=== PATIENT | female | born 1980 | race Caucasian/White ===

== ENCOUNTER 2020-12-18 08:29 | Outpatient (REF) | payer OTHER, SELFPAY ==
[2020-12-20 23:31] LABS: HPV mRNA E6/E7 rflx Not Detected (Not Detected)
== END 2020-12-18 08:30 | disposition home or self-care (01) ==
LOC: HO.LAB 08:29
PROVIDERS: PCP Physician Assistant; Visit Provider Advanced Practice Midwife
DX: Z01.411 Encounter for gynecological examination (general) (routine) with abnormal findings (principal); Z11.51 Encounter for screening for human papillomavirus (HPV); N63.10 Unspecified lump in the right breast, unspecified quadrant; N63.20 Unspecified lump in the left breast, unspecified quadrant
CPT/HCPCS: 36415; 87624; 88142

== ENCOUNTER 2021-01-13 09:55 | Outpatient (REF) | payer OTHER, SELFPAY ==
--- NOTE | ~2021-01-13 | MM_ITS ---
EXAMINATION: MM DIAGNOSTIC DIGITAL BREAST TOMOSYNTHESIS, BILATERAL US DIAGNOSTIC ULTRASOUND BREAST, BILATERAL CLINICAL INFORMATION: 40-year-old with area of palpable concern noted at clinical exam upper outer left breast and outer right breast. No known family history breast cancer. No prior breast imaging. The lifetime risk of breast cancer based on the Tyrer-Cuzick Model is 15%. COMPARISON: None (current study represents initial baseline exam). TECHNIQUE: Digital breast tomosynthesis is performed in both the craniocaudal and mediolateral oblique views along with computer-aided detection (CAD). Synthesized 2D images are generated from the tomosynthesis. Ultrasound left breast is targeted to the upper outer quadrant right breast outer quadrant. Grayscale imaging and color Doppler are performed without and with harmonics. FINDINGS: The breasts are heterogeneously dense, which may obscure small masses (ACR BI-RADS breast composition Category c). There are no significant masses, abnormal calcifications, or other abnormalities. The axilla and skin contours are unremarkable. Ultrasound left breast demonstrates grouping of benign simple cysts 2:00 position 7 cm from nipple composition in area of 1.2 x 0.7 cm. There is no solid mass or associated color flow. There is increased through-transmission of sound. The left breast also has a macrolobulated geographic shape hypoechoic lesion at 12:00 position 5 cm from nipple measuring approximately 1.2 x 0.6 cm. There is no increased or decreased through transmission of sound or associated color flow. The lesion is indeterminate, possibly benign area of fibroadenomatous change or pseudoangiomatous stromal hyperplasia or apocrine metaplasia. Ultrasound-guided core sampling is recommended. Ultrasound right breast demonstrates tiny cyst in o'clock position 7 cm from nipple measuring under 0.5 cm. There is no solid mass or architectural abnormality or focal duct ectasia. Results are discussed with the patient at time of visit. MM/MM tomosynthesis diagnostic BI IMPRESSION: 1. Left: Macrolobulated geographic hypoechoic lesion 12:00 position 1.2 cm. Differential considerations include fibroadenomatous change, pseudoangiomatous stromal hyperplasia, apocrine metaplasia, other. There are also grouped small benign cysts 2:00 position. 2. Right: No mammographic evidence of malignancy. Incidental cyst 8:00 position on ultrasound under 0.5 cm. ASSESSMENT: BI-RADS 4: Suspicious (subcategory 4A: Low suspicion for malignancy) RECOMMENDATION: Ultrasound-guided core biopsy hypoechoic lesion left breast 12:00 position. This patient's information was entered into a reminder system with a target due date for their next mammogram.
== END 2021-01-13 09:56 | disposition home or self-care (01) ==
LOC: HO.MAMMO 09:55
PROVIDERS: Visit Provider Advanced Practice Midwife
DX: N63.21 Unspecified lump in the left breast, upper outer quadrant (principal); N63.13 Unspecified lump in the right breast, lower outer quadrant
CPT/HCPCS: 76642; 77062; 77066

== ENCOUNTER 2021-01-28 09:54 | Outpatient (REF) | payer OTHER, SELFPAY ==
--- NOTE | ~2021-01-28 | MM_ITS ---
EXAMINATION: ULTRASOUND GUIDED CORE BIOPSY BREAST, LEFT POST PROCEDURE DIGITAL MAMMOGRAM, LEFT CLINICAL INFORMATION: Macrolobulated geographic hypoechoic lesion 12:00 position 1.2 cm. Patient age 40. No known family history breast cancer. TC score 15%. COMPARISON: Mammography and targeted breast ultrasound 01/13/2021. FINDINGS: Proper informed consent is obtained from the patient after discussion of the procedure, potential risks and complications, and alternatives. Patient was given an opportunity for questions. The patient appeared to understand. The patient consented to the procedure and signed the consent form. GUIDANCE: Ultrasound-guided; aseptic technique. LESION: Macrolobulated hypoechoic lesion 12:00 position 1.2 x 0.7 cm, possibly fibroadenoma, PASH, apocrine metaplasia, focal fibrosis, other. APPROACH: Mediolateral. ANESTHESIA: 15 mL 1% lidocaine. DERMATOTOMY: Single skin alley dermatotomy performed. NEEDLE: 14-gauge Achieve core biopsy device with 13.5-gauge co-axial guide needle. CORES: 5. CLIP: HydroMARK; shape: coil. POST PROCEDURE UNILATERAL DIGITAL MAMMOGRAM: The post biopsy mammogram is performed in separate room using separate digital mammography equipment from the biopsy procedure. CC x2 and MLO views are obtained. The breasts are heterogeneously dense, which may obscure small masses (breast composition category: c). The clip marker is in position. No gross hematoma. The patient tolerated the procedure well. No immediate complications. Home instructions reviewed with the patient. Final pathology results are pending. MM/MM diagnostic mammo unilat LT IMPRESSION: 1. Status post ultrasound-guided core biopsy left breast. 2. Clip placed: HydroMARK; shape: open coil. 3. Pathology pending. An addendum report will be issued.
== END 2021-01-28 09:55 | disposition home or self-care (01) ==
LOC: HO.MAMMO 09:54
PROVIDERS: Visit Provider Surgery
DX: N63.25 Unspecified lump in the left breast, overlapping quadrants (principal)
CPT/HCPCS: 19083; 77065; 88305; 88341; 88342; A4648

== ENCOUNTER 2021-06-20 09:40 | Outpatient (REF) | payer OTHER, SELFPAY ==
[2021-06-23 04:09] LABS: SARS COV2 IgG Negative (Negative)
== END 2021-06-20 09:41 | disposition home or self-care (01) ==
LOC: HO.LAB 09:40
PROVIDERS: PCP Physician Assistant; Visit Provider Physician Assistant
DX: Z01.84 Encounter for antibody response examination (principal)
CPT/HCPCS: 36415; 86769

== ENCOUNTER → 2021-12-22 09:54 | Outpatient (BNVA) | payer OTHER, SELFPAY | PROVIDERS: PCP Physician Assistant; Visit Provider Advanced Practice Midwife | DX: Z13.89 Encounter for screening for other disorder (principal) ==

== ENCOUNTER → 2022-12-28 10:00 | Outpatient (BNVA) | payer OTHER, SELFPAY | PROVIDERS: PCP Physician Assistant; Visit Provider Advanced Practice Midwife | DX: Z13.89 Encounter for screening for other disorder (principal) ==

== ENCOUNTER → 2024-01-05 10:04 | Outpatient (BNVA) | payer OTHER, SELFPAY | PROVIDERS: Visit Provider Advanced Practice Midwife ==

== ENCOUNTER 2024-08-31 14:45 | Outpatient (AMB) | payer OTHER, SELFPAY ==
[2024-08-31 14:46] VITALS: BP 106/60; PULSE 86; O2SAT 98; BMI 20.1
--- NOTE | 2024-08-31 14:46 | A.OFFPC_ITS ---
Vital Signs 08/31/24 14:46 Height 5 ft 9 in Weight 136 lb 6 oz BMI 20.1 BP 106/60 Blood Pressure Location Lt brachial Position Sitting Pulse 86 Pulse Source Pulse Oximeter Pulse Oximetry (%) 98 Oxygen Delivery Method Room Air Intake Visit Reasons: fatigue,cough, fever,headache Gm/Svp [employer] Required: No Accompanied by: Self / Same As Patient Allergies No Known Allergies [No Known Allergies*] Allergy (Verified 08/31/24 14:55) Tobacco use date assessed: 09/03/21 HPI fatigue,cough, fever,headache HPI Details The patient is a 44-year-old female presenting with a worsening cough and fatigue following a previous diagnosis of pneumonia. She reports that the symptoms began rapidly with a cough and chest pain after recovering from a prior cold, starting the Wednesday before she visited urgent care on October 14. The cough was productive, with phlegm, and was associated with malaise, fatigue, and headache, confining her to bed over the weekend. She visited an urgent care faci lity where she was evaluated with a chest x-ray, diagnosed with pneumonia, and started on doxycycline, another antibiotic, prednisone, and was offered an inhaler. She felt better by Thanksgiving, engaged in activities such as snowboarding, but experienced a recurrence of symptoms two days before this visit, including a severe cough, fatigue, and a low-grade fever. The patient is experiencing cough episodes so intense they induce nausea. She denies current smoking and asthma history, suggesting a generally healthy background. Treatment with prednisone has previously left her feeling invigorated but now seeks a resolution to her respiratory symptoms. She also reports occasional eustachian tube-related ear symptoms, potentially linked to sinus pressure and changes. [facility] Medical History Cervical cancer screening Kidney infection Surgical History History of surgery on arm Family History Paternal Grandmother Congestive heart disease Maternal Grandfather Prostate cancer Social History Alcohol intake: current Alcohol intake frequency: former alcohol drinker Patient Tobacco Use Status: Never used Tobacco Tobacco use type: Cigarette e-Cigarette/Vaping Use: Never Used Second Hand Smoke Exposure: No Current occupational status: employed Current occupation: [employer] Sexual orientation: Straight/Heterosexual Gender identity: Female Female Reproductive History Menstrual Age of Menarche: 14 Questionnaire Thrive Questionnaire Date Thrive assessed: 09/03/21 AUDIT C Alcohol Use Questionnaire (AUDIT-C) 2. How many drinks containing alcohol do you have on a typical day when you are drinking?: 1 or 2 3. How often do you have six or more drinks on one occasion?: Never Total Score: 0 TONO-7 AMB Questionnaire TONO-7 Date TONO - 7 assessed: 09/03/21 Source: Developed by Drs. Jomar Bradford, Mirlande Nevarez, Markus Donovan and colleagues, with an educational pallavi from [employer]. Review of Systems Const Reports body aches, Reports fatigue and Denies headache(s) Eyes Denies loss of vision ENT Denies vertigo, Denies dizziness, Denies headache(s) and Denies sore throat Card Denies chest pain, Denies leg edema and Denies lightheadedness Resp Reports cough, Denies hemoptysis and Denies wheezing GI Denies abdominal pain, Denies melena, Denies constipation, Denies diarrhea and Denies vomiting Denies urinary frequency, Denies dysuria and Denies urinary urgency Musc Denies arthralgias, Denies joint swelling, Denies numbness and Denies tingling Neuro Denies Abnormal speech present, Denies behavioral changes, Denies vertigo, Denies dizziness, Denies headache(s), Denies loss of vision, Denies memory loss, Denies numbness and Denies tingling Psych Denies anxiety, Denies behavioral changes, Denies depression, Denies memory loss and Denies panic attacks Endo Reports fatigue Matthew/Lymph Denies easy bleeding and Denies easy bruising Aller/Immun Denies wheezing Physical exam (Primary Care) Vital Signs: Last Vital Signs Pulse 86 08/31/24 14:46 BP 106/60 08/31/24 14:46 Pulse Ox 98 08/31/24 14:46 Oxygen Delivery Method Room Air 08/31/24 14:46 BMI result Body Mass Index 20.1 Tobacco/Smoking Status: Tobacco use Status Tobacco use date assessed 09/03/21 08/31/24 14:46 Patient Tobacco Use Status Never used Tobacco 12/12/24 14:46 Tobacco use type Cigarette 08/31/24 14:46 e-Cigarette/Vaping Use Never Used 08/31/24 14:46 Thrive Assessment: Date of Thrive Assessment Date Thrive assessed 09/03/21 08/31/24 14:46 Const General: healthy appearing, no acute distress, alert and awake Nutritional Appearance: well nourished Orientation/consciousness: oriented to person, oriented to place and oriented to time HENMT Ears: TM's normal bilaterally General nose exam: Normal nasal mucous membranes and turbinates present Eyes Conjunctivae: conjunctivae normal Sclerae: sclerae normal Pupils: Equal, round and reactive pupils present Neck Neck: Yes no lymphadenopathy and Yes no JVD Thyroid: Thyroid normal Carotids: no bruits Resp Effort & Inspection: normal respiratory effort and not tachypneic Auscultation: no crackles, no rales, no rhonchi and no wheezes Cardio Rate: regular rate Rhythm: regular rhythm Heart sounds: no murmurs and normal S1 and S2 GI Palpation (GI): Soft to palpation, nontender, no hepatomegaly and no splenomegaly Auscultation: normal bowel sounds Skin General skin exam: no rashes or lesions noted and dry skin Neuro General: oriented to person, oriented to place and oriented to time Cranial nerves: Yes Equal, round and reactive pupils present Speech: No Abnormal speech present Gait exam (Neuro): Normal gait present Motor exam (neuro): no tremor noted Extrem Right upper extremity: full ROM Left upper extremity: full ROM Right lower extremity: full ROM; no edema Left lower extremity: full ROM; no edema Psych Mental Status: mental status grossly normal Speech and movement: Normal speech and movement present Affect: normal affect Attitude: cooperative Thought process: Normal thought process present Coding Level of Care Code Est Pt Level 3 (07799) Diagnoses Viral upper respiratory tract infection J06.9 URI type: unspecified viral URI Assessment & Plan Assessment & Plan (1) Upper respiratory infection: Code(s): J06.9 - Acute upper respiratory infection, unspecified Category: Medical Qualifiers: URI type: unspecified viral URI Qualified Code(s): J06.9 - Acute upper respiratory infection, unspecified Plan: I discussed with the patient that her symptoms are suggestive of a recurrence or flare-up of a respiratory infection, possibly pneumonia. A tapering course of prednisone should help reduce lung inflammation and alleviate coughing fits. I provided a prescription for a cough suppressant containing codeine to use at bedtime to facilitate rest, highlighting the considerations given it's a controlled substance. While awaiting testing results for RSV, flu, and COVID, I detailed that a bacterial origin, whether from an unresolved pneumonia or reinfection, may still be suspected depending on symptom recurrence and severit y, and thus antibiotics may be warranted if not improved. I discussed how maintaining proper hygiene and limiting exposure by coughing into a corner or using purification at home can mitigate family risk. Potential repeat imaging was considered contingent on further symptom escalation. Orders: Orders XR chest 2V 08/31/24 J06.9 - Acute upper respiratory infection, unspecified Comprehensive [place]. Panel Fast 08/31/24 Z13.1 - Encounter for screening for diabetes mellitus Complete Blood Count no Diff 08/31/24 Z13.1 - Encounter for screening for diabetes mellitus SARS-CoV2/FLU/RSV 08/31/24 R09.89 - Other specified symptoms and signs involving the circulatory and respiratory systems Medications: New codeine-guaifenesin 10-100 mg/5 mL 5 mL PO Q6H 5 days PRN 120 mL 0RF cough J06.9 - Acute upper respiratory infection, unspecified prednisone Take 3 tablets x3 days, 2 tablets x2 days, 1 tablet x2 days 5 mg PO DIRECTED 7 days 15 tabs 0RF Z13.1 - Encounter for screening for diabetes mellitus amoxicillin-pot clavulanate 875-125 mg 1 tab PO BID 7 days 14 tabs 0RF J06.9 - Acute upper respiratory infection, unspecified
== END 2024-08-31 15:13 | disposition home or self-care (01) ==
PROVIDERS: PCP Physician Assistant; Visit Provider Physician Assistant
DX: J06.9 Acute upper respiratory infection, unspecified (principal)

== ENCOUNTER 2024-08-31 14:45 | Outpatient (REF) | payer OTHER, SELFPAY ==
[2024-08-31 19:39] LABS: Influenza A PCR NEGATIVE (Negative); Influenza B PCR NEGATIVE (Negative); Resp Syncy Virus RNA Qual PCR NEGATIVE (Negative); SARS COV2 PCR INHOUSE NEGATIVE (Negative)
== END 2024-08-31 14:46 | disposition home or self-care (01) ==
LOC: HO.LAB 14:45
PROVIDERS: PCP Physician Assistant; Visit Provider Physician Assistant
DX: J06.9 Acute upper respiratory infection, unspecified (principal); R09.89 Other specified symptoms and signs involving the circulatory and respiratory systems
CPT/HCPCS: 0241U

== ENCOUNTER 2024-10-10 07:27 | Outpatient (REF) | payer OTHER, SELFPAY ==
[2024-10-10 07:59] LABS: Hematocrit 36.7 % (37.0-47.0); Hemoglobin 12.4 g/dl (12.0-16.0); Mean Corpuscular HGB Conc 33.8 g/dl (31.0-35.0); Mean Corpuscular Hemoglobin 29.5 pg (27.0-33.0); Mean Corpuscular Volume 87.4 fL (80.0-98.0); Mean Platelet Volume 10.3 fL (9.4-12.3); Platelet Count 208 X10*3/uL (160-400); Red Cell Distribution Width 12.8 % (11.0-16.0); White Blood Count 4.3 X10*3/uL (4.8-10.8)
[2024-10-10 08:48] LABS: Alanine Aminotransferase 22 U/L (0-31); Albumin Level 4.3 g/dL (3.5-5.0); Alkaline Phosphatase 50 U/L (39-117); Anion Gap 10 (12-20); Aspartate Amino Transferase 21 U/L (5-31); Bilirubin Total 0.6 mg/dL (0.0-1.0); Blood Urea Nitrogen 8 mg/dL (9-16); Calcium 8.6 mg/dL (8.4-10.2); Carbon Dioxide 28 mmol/L (22-29); Chloride 105 mmol/L (96-108); Estimated Glomerular Filt Rate > 60; Glucose Fasting 87 mg/dL (60-99); Potassium 4.1 mmol/L (3.3-5.1); Sodium 139 mmol/L (135-145); Total Protein 7.3 g/dL (6.5-8.0)
== END 2024-10-10 07:28 | disposition home or self-care (01) ==
LOC: HO.LAB 07:27
PROVIDERS: PCP Physician Assistant; Visit Provider Physician Assistant
DX: Z13.1 Encounter for screening for diabetes mellitus (principal)
CPT/HCPCS: 36415; 80053; 85027

== ENCOUNTER 2024-10-11 15:15 | Outpatient (AMB) | payer OTHER, SELFPAY ==
--- NOTE | 2024-10-11 15:17 | MHC.PC.OV ---
Vital Signs 10/11/24 15:30 Height 5 ft 9 in Weight 138 lb 2 oz BMI 20.4 BP 100/62 Blood Pressure Location Lt brachial Position Sitting Pulse 73 Pulse Source Pulse Oximeter Temp 97.1 F Temp Source Temporal Artery Scan Pulse Oximetry (%) 98 Oxygen Delivery Method Room Air Intake Visit Reasons: pe Allergies No Known Allergies [No Known Allergies*] Allergy (Verified 10/11/24 15:39) Medication List - Last Reconciled 10/11/24 by Jason Moreno PA-C amoxicillin-pot clavulanate 875-125 mg 1 tab PO BID 7 days codeine-guaifenesin 10-100 mg/5 mL 5 mL PO Q6H PRN 5 days prednisone 5 mg PO DIRECTED 7 days Tobacco use date assessed: 09/03/21 HPI pe HPI Details Patient is a 44-year-old female here today for an annual physical. Patient is a fairly healthy 44-year-old female. Recently had an upper respiratory infection that lasted a few weeks. She was treated with antibiotics, cough suppressant tablets and prednisone which has helped. She has clinically improved. Most recent labs showing slight leukopenia with a white blood cell count of 4.3. Will continue to monitor and consider Hematology evaluation. 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 Vaccine: Up-to-date with tetanus, declines flu , Did get COVID .. Mammo: Did have? Abnormal mammogram in 2020, did get a diagnostic mammogram which was normal. 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 [facility] Medical History Cervical cancer screening Kidney infection Surgical History History of surgery on arm Family History Paternal Grandmother Congestive heart disease Maternal Grandfather Prostate cancer Social History (Updated 10/11/24 @ 15:42 by Jason Moreno PA-C) Alcohol intake: current Alcohol intake frequency: former alcohol drinker Patient Tobacco Use Status: Never used Tobacco Tobacco use type: Cigarette e-Cigarette/Vaping Use: Never Used Second Hand Smoke Exposure: No Current occupational status: employed Current occupation: [id number] Sexual orientation: Straight/Heterosexual Gender identity: Female Female Reproductive History Menstrual Age of Menarche: 14 Questionnaire PHQ-9 Over the last 2 weeks, how often have you been bothered by any of the following problems? 1. Little interest or pleasure in doing things: not at all 2. Feeling down, depressed, or hopeless: not at all 3. Trouble falling or staying asleep, or sleeping too much: not at all 4. Feeling tired or having little energy: not at all 5. Poor appetite or overeating: not at all 6. Feeling bad about yourself - or that you are a failure or have let yourself or your family down: not at all 7. Trouble concentrating on things, such as reading the newspaper or watching television: not at all 8. Moving or speaking so slowly that other people could have noticed. Or the opposite - being so fidgety or restless that you have been moving around a lot more than usual: not at all 9. Thoughts that you would be better off or of hurting yourself in some way: not at all Total score: 0 Depression Screening Interpretation: Negative Depression Screening Done: Yes [address]7539 - PHQ-9 Billing: Yes Source: Developed by Drs. Jomar Bradford, Mirlande Nevarez, Markus Donovan and colleagues, with an educational pallavi from [employer]. Thrive Questionnaire Date Thrive assessed: 10/11/24 I am a: Patient What is your living situation today?: I have a steady place to live Within the past 12 months, did the food you bought not last and you didn't have the money to get more?: Never true Within the past 12 months, did you worry whether your food would run out before you got money to buy more?: Never true Do you have trouble paying for medicines?: No Do you have trouble getting transportation to medical appointments?: No Do you have trouble paying your heating and electricity bill?: No Do you have trouble taking care of your child, family member or friend?: No Do you have trouble with day-to-day activities such as bathing, preparing meals, shopping, managing finances, etc.?: No Are you currently unemployed and looking for a job?: No Are you interested in more education?: No Please select the resources that you would like help with: None Currently or been in a relationship where the following occur: No concerns reported THRIVE Score: 0 AUDIT C Alcohol Use Questionnaire (AUDIT-C) 1. How often do you have a drink containing alcohol?: Never 3. How often do you have six or more drinks on one occasion?: Never Total Score: 0 TONO-7 AMB Questionnaire TONO-7 Date TONO - 7 assessed: 10/11/24 Feeling nervous, anxious, or on edge: 0 = Not at all Not being able to stop or control worryin = Not at all Worrying too much about different things: 0 = Not at all Trouble relaxin = Not at all Being so restless that it is hard to sit still: 0 = Not at all Becoming easily annoyed or irritable: 0 = Not at all Feeling afraid as if something awful might happen: 0 = Not at all Total TONO-7 score (0-4 normal; 5-9 mild; 10-14 moderate; 15-21 severe): 0 Source: Developed by Drs. Jomar Bradford, Mirlande Nevarez, Markus Donovan and colleagues, with an educational pallavi from [employer]. TONO-7 Assessment Billing TONO-7 Assessment Tool: TONO-7 Assessment 11728 Review of Systems Const Denies body aches, Denies chills, Denies excessive sweating, Denies fatigue, Denies fever(s) and Denies headache(s) Eyes Denies blurry vision ENT Denies dysphagia, Denies vertigo, Denies dizziness, Denies headache(s), Denies hearing loss and Denies tinnitus Card Denies chest pain, Denies chest pain with activity, Denies syncope, Denies irregular heart rhythm and Denies dyspnea Resp Denies chest congestion, Denies cough, Denies hemoptysis, Denies dyspnea and Denies wheezing GI Denies abdominal pain, Denies melena, Denies hematochezia, Denies coffee ground emesis, Denies dysphagia, Denies diarrhea, Denies nausea and Denies vomiting Denies urinary frequency, Denies dysuria, Denies urinary hesitancy and Denies urinary urgency Musc Denies arthralgias, Denies limited range of motion, Denies muscle cramps and Denies muscle weakness Skin/Breast Denies rash and Denies skin ulcer Neuro Denies Abnormal speech present, Denies confusion, Denies vertigo, Denies dizziness, Denies syncope, Denies headache(s), Denies memory loss and Denies seizure-like activity Psych Denies anxiety, Denies confusion, Denies depression, Denies memory loss, Denies panic attacks and Denies paranoia Endo Denies excessive sweating, Denies fatigue, Denies flushing, Denies polydipsia and Denies polyuria Aller/Immun Denies wheezing Physical exam (Primary Care) Vital Signs: Last Vital Signs Temp 97.1 F 10/11/24 15:30 Pulse 73 10/11/24 15:30 BP 100/62 10/11/24 15:30 Pulse Ox 98 10/11/24 15:30 Oxygen Delivery Method Room Air 10/11/24 15:30 BMI result Body Mass Index 20.4 Tobacco/Smoking Status: Tobacco use Status Tobacco use date assessed 09/03/21 10/11/24 15:17 Patient Tobacco Use Status Never used Tobacco 10/11/24 15:42 Tobacco use type Cigarette 10/11/24 15:42 e-Cigarette/Vaping Use Never Used 10/11/24 15:42 PHQ-9: PHQ-9 Score PHQ-9: Total score 0 10/11/24 15:38 Depression Screening Interpretation: Negative Thrive Assessment: Date of Thrive Assessment Date Thrive assessed 10/11/24 10/11/24 15:17 Currently or been in a relationship where the following occur: No concerns reported Const General: cooperative, comfortable, no acute distress, alert and awake; No confusion Orientation/consciousness: oriented to person, oriented to place, patient oriented x3 and No confusion HENMT Head: Yes normocephalic Ears: external ears normal and TM's normal bilaterally Face and sinus: No sinus tenderness Mouth: Normal oral and palatal mucosa present and tongue normal Teeth and gingiva: dentition normal and gingiva normal Throat: Yes posterior oropharynx normal, Yes tonsils normal and Yes uvula midline Eyes Conjunctivae: conjunctivae normal Sclerae: sclerae normal Pupils: Equal, round and reactive pupils present EOM: EOMs intact bilaterally Direct Ophthalmoscopy: No no photophobia Neck Neck: Yes no lymphadenopathy, No tender and Yes no JVD Thyroid: Thyroid normal Carotids: no bruits Chest Chest palpation & inspection: no tenderness Resp Effort & Inspection: normal respiratory effort, no audible wheezes, not labored and no stridor Auscultation: no crackles, no rales, no rhonchi and no wheezes Cardio Jugular venous distension: no JVD Rate: regular rate, not bradycardic and not tachycardic Rhythm: regular rhythm Bruits: no carotid bruits Peripheral pulses: Peripheral pulses 2+ throughout GI Inspection: Yes normal to inspection, No abdominal wall ecchymosis and No visible herniation Palpation (GI): Soft to palpation, nontender, no guarding, not rigid and No hepatosplenomegaly present Auscultation: normoactive bowel sounds General: Yes no CVA tenderness Back/Spine/Pelvis Back: no CVA tenderness and No back tenderness Cervical Spine: cervical ROM normal Thoracic/Lumbar Spine: thoracic and lumbar spine normal to inspection, straight leg raise negative bilaterally, No thoraco-lumbar ROM limited and No lumbar spinal tenderness Skin Lesions: no lesions Rashes: no rashes Wounds: no wounds Neuro General: oriented to person, oriented to place, patient oriented x3, CN's II-XI intact bilaterally and No confusion Cranial nerves: Yes Equal, round and reactive pupils present and Yes Normal accommodation reflex present Cognition (Neuro): normal cognition Speech: No Abnormal speech present Gait exam (Neuro): Normal gait present Motor exam (neuro): 5/5 motor strength present throughout Extrem Right upper extremity: full ROM; no cyanosis Left upper extremity: full ROM; no cyanosis Right lower extremity: no edema Left lower extremity: no edema Psych Appearance: grossly normal Mental Status: mental status grossly normal Affect: normal affect Attitude: cooperative Thought process: Normal thought process present Office Procedures Flu Questionnaire Does the patient have a severe egg allergy?: No Does the patient have severe life threatening allergies?: No Does the patient have a fever or illness today?: No Has the patient ever had Guillain-Kremlin Syndrome?: No Has the patient ever had any past reaction to a flu shot?: No Immunizations Fluarix Triv [id number] (PF) 45 mcg (15 mcg x 3)/0.5 mL IM syringe Performing Provider: Jason Moreno PA-C [facility] [place] [facility] Documented (not given) by: JARON Edwards on 10/11/24 15:33 Reason Not Given: Patient Refused Coding Level of Care Code Est Pt Prev Care 40-64y(72192) Diagnoses Annual physical exam Z00.00 Neutropenia, unspecified type D70.9 Leukopenia type: neutropenia Neutropenia type: unspecified Additional Codes TONO-7 Assessment Billing - TONO-7 Assessment Tool: TONO-7 Assessment 37237 ([id number]) PHQ-9 - 98331 - PHQ-9 Billing: Yes ([id number]) Assessment & Plan Assessment & Plan (1) Annual physical exam: Code(s): Z00.00 - Encounter for general adult medical examination without abnormal findings Category: Medical Plan: As per HPI (2) Leukopenia: Code(s): D72.819 - Decreased white blood cell count, unspecified Category: Medical Qualifiers: Leukopenia type: neutropenia Neutropenia type: unspecified Qualified Code(s): D70.9 - Neutropenia, unspecified Plan: As per HPI noted to have leukopenia over the last few years. Will recheck CBC in 4 weeks after she recently had an upper respiratory infection. Will consider Hematology evaluation. Orders: Orders Influenza [id number] Immunization 10/11/24 Z23 - Encounter for immunization Complete Blood Count Auto Diff 4 Weeks D70.9 - Neutropenia, unspecified
[2024-10-11 15:30] VITALS: BP 100/62; PULSE 73; TEMP 36.2; O2SAT 98; BMI 20.4
== END 2024-10-11 16:02 | disposition home or self-care (01) ==
PROVIDERS: PCP Physician Assistant; Visit Provider Physician Assistant
DX: Z00.00 Encounter for general adult medical examination without abnormal findings (principal); D70.9 Neutropenia, unspecified

== ENCOUNTER → 2024-10-11 15:15 | Outpatient (BNVA) | payer OTHER, SELFPAY | PROVIDERS: PCP Physician Assistant; Visit Provider Physician Assistant | DX: Z00.00 Encounter for general adult medical examination without abnormal findings (principal); D70.9 Neutropenia, unspecified; Z28.21 Immunization not carried out because of patient refusal | CPT/HCPCS: 90471; 96127 ==

== ENCOUNTER 2025-02-01 08:23 | Outpatient (REF) | payer OTHER, SELFPAY ==
[2025-02-01 08:48] LABS: MANUAL DIFF FLAG NO
[2025-02-01 09:25] LABS: Basophils Percent Auto 1.2 % (0-2); Eosinophils Absolute Auto 0.1 X10*3/uL (0.0-0.4); Eosinophils Percent Auto 1.5 % (0-4); Hematocrit 34.8 % (37.0-47.0); Hemoglobin 11.8 g/dl (12.0-16.0); Lymphocytes Absolute Auto 1.5 X10*3/uL (1.2-4.9); Mean Corpuscular HGB Conc 33.9 g/dl (31.0-35.0); Mean Corpuscular Hemoglobin 29.8 pg (27.0-33.0); Mean Corpuscular Volume 87.9 fL (80.0-98.0); Mean Platelet Volume 10.5 fL (9.4-12.3); Monocytes Absolute Auto 0.3 X10*3/uL (0.1-1.2); Monocytes Percent Auto 10.5 % (2-11); Neutrophils Absolute Auto 1.3 x10*3/uL (2.0-8.3); Neutrophils Percent Auto 40.8 % (45-73); Platelet Count 192 X10*3/uL (160-400); Red Blood Count 3.96 X10*6/uL (4.20-5.50); Red Cell Distribution Width 12.2 % (11.0-16.0); White Blood Count 3.2 X10*3/uL (4.8-10.8)
== END 2025-02-01 08:24 | disposition home or self-care (01) ==
LOC: HO.LAB 08:23
PROVIDERS: PCP Physician Assistant; Visit Provider Physician Assistant
DX: D70.9 Neutropenia, unspecified (principal)
CPT/HCPCS: 36415; 85025

== ENCOUNTER 2025-02-02 14:32 | Outpatient (REF) | payer OTHER, SELFPAY ==
[2025-02-02 15:48] LABS: Iron 48 mcg/dL (30-160); Percent Iron Saturation 15 % (15-50); Total Iron Binding Capacity 321 mcg/dL (228-428); Unsaturated Iron Binding 273 ug/dL
[2025-02-02 15:57] LABS: Vitamin D 25-OH Total 27.4 ng/mL (>30)
[2025-02-02 16:12] LABS: Folate 8.3 ng/mL (> or = 4.0); Vitamin B12 313 pg/mL (200-900)
== END 2025-02-02 14:33 | disposition home or self-care (01) ==
LOC: HO.LAB 14:32
PROVIDERS: PCP Physician Assistant; Visit Provider Physician Assistant
DX: E53.8 Deficiency of other specified B group vitamins (principal); D64.9 Anemia, unspecified; D50.9 Iron deficiency anemia, unspecified
CPT/HCPCS: 36415; 82306; 82607; 82746; 83540

== ENCOUNTER 2025-07-27 11:51 | Outpatient (REF) | payer OTHER, SELFPAY ==
[2025-07-27 12:02] LABS: MANUAL DIFF FLAG NO
[2025-07-27 13:51] LABS: Hematocrit 36.5 % (37.0-47.0); Hemoglobin 12.6 g/dl (12.0-16.0); Imm Gran Abs Auto 0.01 X10*3/uL (0.00-0.03); Imm Gran Pct Auto 0.2 % (0.0-0.4); Lymphocytes Absolute Auto 1.8 X10*3/uL (1.2-4.9); Mean Corpuscular HGB Conc 34.5 g/dl (31.0-35.0); Mean Corpuscular Hemoglobin 30.1 pg (27.0-33.0); Mean Corpuscular Volume 87.3 fL (80.0-98.0); NRBC Abs Auto 0.000 X10*3/uL (0.0-0.012); NRBC Pct Auto 0.0 /100WBC (0.0-0.2); Platelet Count 220 X10*3/uL (160-400); Red Blood Count 4.18 X10*6/uL (4.20-5.50); White Blood Count 5.9 X10*3/uL (4.8-10.8)
--- OUTSIDE RECORDS SUMMARY | 2025-07-27 14:16 | XMS_ITS | Clinical Summary ---
Author Organization [facility] Address [address] [address] Phone Care Team Providers Care Production Reproduction Manager Name Role Phone Kateryna Parker CNM Primary Care Provider [phone] Allergies No known active allergies Family History Medical History Relation Comments Hypertension Father 2 Cancer Maternal Grandfather 2 Relation Status Comments Father 1 Alive Father 2 Maternal Grandfather 1 Maternal Grandfather 2 Social History Tobacco Use Types Packs/Day Years Used Date Smoking Tobacco: Never Assessed Education Answer Date Recorded Are you interested in more education? Not on armando e 09/04/2024 Are you concerned about learning? Not on file 09/04/2024 No 09/04/2024 No 09/04/2024 Digital Access Answer Date Recorded No 09/04/2024 No 09/04/2024 Reliable internet access at home? Not on file 09/04/2024 Device with a working camera? Not on file Comments Unknown Sex and Gender Information Value Date Recorded Sex Assigned at Not on file Legal Sex Female 7:01 PM EST Gender Identity Not on file Sexual Orientation Not on file Last Filed Vital Signs Vital Sign Reading Time Taken Comments Blood Pressure 100/62 09/04/2014 3:16 AM EST Pulse - - Temperature - - Respiratory Rate - - Oxygen Saturation - - Inhaled Oxygen Concentration - - Weight 63.8 kg (140 lb 9.6 oz) 09/04/2014 3:16 A M EST Height 172.7 cm (5' 8 ) 09/04/2014 3:16 AM EST Body Mass Index 21.38 09/04/2014 3:16 AM EST Plan of Treatment Health Maintenance Due Date Last Done Comments Adult Td,Tdap Booster 1981 DEPRESSION SCREENING 1993 SMOKING Hx and SMOKELESS TOB ACCO SCREENING 1994 HEPATITIS C SCREENING 1999 HIV ONE-TIME SCREENING (18-6 5 YEARS) 1999 PAP SMEAR 2002 MAMMOGRAM 2021 INFLUENZA VACCINE (#1) 2025 COVID-19 VACCINE ( - 2024-2 6 season) 2025 HEPATITIS A VACCINES Aged Out No long er eligible based on patient's age to complete this topic HIB VACCINES Aged Out No longer eligi ble based on patient's age to complete this topic MENINGOCOCCAL VACCINES (ACWY) Aged Out No longer eligible based on patient's age to complete this topic MENINGOCOCCAL VACCINES (B) Aged Out N o longer eligible based on patient's age to complete this topic PNEUMOCOCCAL VACCINES (0-49 years) Aged Out No longer eligible based on patient's age to complete this topic Medical Devices Not on file Insurance [employer] B[employer]EFITS [employer]MIN[employer]RATORS Member Subscriber Plan / Payer (Ef fective 2016-Present) Name:Asa Mckeon Relation to Subscriber:Self Name:Asa Mckeon Payer ID:[id number] (NAIC) Type:PPO Address: [place] [id number] [employer] [facility] ADMINISTRATORS [employer] BENEFITS ADMINISTRATORS [facility] BLUE BENEFITS ADMINISTRATORS Care Teams Production Reproduction Manager Relationship Specialty Start Date End Date Kateryna Parker CNM [address] [place] [id number] PCP - General Certified Nurse Hydropulper 02/02/25 Additional Source Comments The information contained in this document represents components of the legal health record. It is not the complete legal health record.[facility]
== END 2025-07-27 11:52 | disposition home or self-care (01) ==
LOC: HO.LAB 11:51
PROVIDERS: PCP Physician Assistant; Visit Provider Physician Assistant
DX: D70.9 Neutropenia, unspecified (principal)
CPT/HCPCS: 36415; 85025

== ENCOUNTER 2025-07-30 10:58 | Outpatient (AMB) | payer OTHER, SELFPAY ==
--- NOTE | 2025-07-30 11:12 | MHC.PC.OV ---
Vital Signs 07/30/25 11:13 Height 5 ft 9 in Weight 136 lb 8 oz BMI 20.2 BP 100/66 Blood Pressure Location Lt brachial Position Sitting Pulse 66 Pulse Source Pulse Oximeter Temp 97.1 F Temp Source Temporal Artery Scan Pulse Oximetry (%) 96 Oxygen Delivery Method Room Air Intake Visit Reasons: Referral Hematology/blood disorder Intake Note: Patient is here to follow up on blood disorder. Requesting referral to Hematology. Senior Web Applications Developer Required: No Sales Representative Sales Manager: Not Required per policy Accompanied by: Self / Same As Patient Allergies No Known Allergies (No Known Allergies*) Allergy (Verified 07/30/25 11:46) Medication List - Last Reconciled 07/30/25 by Jason Moreno PA-C No Known Home Meds Tobacco use date assessed: 07/30/25 Dental Screening Dental Screen Date: 07/30/25 Did you have a dental visit in the last 12 months?: Yes Did you have a dental problem in the last 6 months where you did not have access to dental care?: No Was dental information given to patient?: Patient has dentist HPI Referral Hematology/blood disorder HPI Details Patient is a 45-year-old female here today for follow-up visit Patient has a past medical history significant for leukopenia and anemia Most recent labs showing slight leukopenia with a white blood cell count of 4.3. Recent vitamin levels of B12, iron and folate normal. She is not as concerned as it seems that she has chronic intermittent low red blood cell counts Will continue to monitor and consider Hematology evaluation. Laboratory Tests 05/18/20 10/10/24 02/01/25 08:12 07:33 08:47 RBC 4.05 L 4.20 3.96 L Hgb 12.6 12.4 Hct 34.8 L MCV Iron TIBC Cholesterol 181 Vitamin B12 25-OH Vitamin D To evi TSH 3rd Generation 1.25 02/02/25 07/27/25 14:44 12:01 RBC 4.18 L Hgb Hct 36.5 L MCV 87.3 Iron 48 TIBC 321 Cholesterol Vitamin B12 313 25-OH Vitamin D To evi 27.4 L TSH 3rd Generation PFSH Medical History Cervical cancer screening Kidney infection Surgical History History of surgery on arm Family History Paternal Grandmother Congestive heart disease Maternal Grandfather Prostate cancer Social History Alcohol intake: current Alcohol intake frequency: former alcohol drinker Patient Tobacco Use Status: Never used Tobacco Tobacco use type: Cigarette e-Cigarette/Vaping Use: Never Used Second Hand Smoke Exposure: No service: No Current occupational status: employed Current occupation: [employer] Sexual orientation: Straight/Heterosexual Gender identity: Female Cognitive needs: No Hearing needs: No Vision needs: No Female Reproductive History Menstrual Age of Menarche: 14 Questionnaire Thrive Questionnaire Date Thrive assessed: 10/11/24 I am a: Patient What is your living situation today?: I have a steady place to live Within the past 12 months, did the food you bought not last and you didn't have the money to get more?: Never true Within the past 12 months, did you worry whether your food would run out before you got money to buy more?: Never true Do you have trouble paying for medicines?: No Do you have trouble getting transportation to medical appointments?: No Do you have trouble paying your heating and electricity bill?: No Do you have trouble taking care of your child, family member or friend?: No Do you have trouble with day-to-day activities such as bathing, preparing meals, shopping, managing finances, etc.?: No Are you currently unemployed and looking for a job?: No Are you interested in more education?: No Please select the resources that you would like help with: None Currently or been in a relationship where the following occur: No concerns reported THRIVE Score: 0 TONO-7 AMB Questionnaire TONO-7 Date TONO - 7 assessed: 10/11/24 Source: Developed by Drs. Jomar Bradford, Mirlande Nevarez, Markus Donovan and colleagues, with an educational pallavi from [employer]. Review of Systems Const Denies headache(s) Eyes Denies loss of vision ENT Denies vertigo, Denies dizziness, Denies headache(s) and Denies sore throat Card Denies chest pain, Denies leg edema and Denies lightheadedness Resp Denies cough, Denies hemoptysis and Denies wheezing GI Denies abdominal pain, Denies melena, Denies constipation, Denies diarrhea and Denies vomiting Denies urinary frequency, Denies dysuria and Denies urinary urgency Musc Denies arthralgias, Denies joint swelling, Denies numbness and Denies tingling Neuro Denies Abnormal speech present, Denies behavioral changes, Denies vertigo, Denies dizziness, Denies headache(s), Denies loss of vision, Denies memory loss, Denies numbness and Denies tingling Psych Denies anxiety, Denies behavioral changes, Denies depression, Denies memory loss and Denies panic attacks Matthew/Lymph Denies easy bleeding and Denies easy bruising Aller/Immun Denies wheezing Physical exam (Primary Care) Vital Signs: Last Vital Signs Temp 97.1 F 07/30/25 11:13 Pulse 66 07/30/25 11:13 BP 100/66 07/30/25 11:13 Pulse Ox 96 07/30/25 11:13 Oxygen Delivery Method Room Air 07/30/25 11:13 BMI result Body Mass Index 20.2 Tobacco/Smoking Status: Tobacco use Status Tobacco use date assessed 07/30/25 07/30/25 11:27 Patient Tobacco Use Status Never used Tobacco 07/30/25 11:27 Tobacco use type Cigarette 07/30/25 11:27 e-Cigarette/Vaping Use Never Used 07/30/25 11:27 Thrive Assessment: Date of Thrive Assessment Date Thrive assessed 10/11/24 07/30/25 11:27 Currently or been in a relationship where the following occur: No concerns reported Const General: healthy appearing, no acute distress, alert and awake Nutritional Appearance: well nourished Orientation/consciousness: oriented to person, oriented to place and oriented to time HENIN Ears: TM's normal bilaterally General nose exam: Normal nasal mucous membranes and turbinates present Eyes Conjunctivae: conjunctivae normal Sclerae: sclerae normal Pupils: Equal, round and reactive pupils present Neck Neck: Yes no lymphadenopathy and Yes no JVD Thyroid: Thyroid normal Carotids: no bruits Resp Effort & Inspection: normal respiratory effort and not tachypneic Auscultation: no crackles, no rales, no rhonchi and no wheezes Cardio Rate: regular rate Rhythm: regular rhythm Heart sounds: no murmurs and normal S1 and S2 GI Palpation (GI): Soft to palpation, nontender, no hepatomegaly and no splenomegaly Auscultation: normal bowel sounds Skin General skin exam: no rashes or lesions noted and dry skin Neuro General: oriented to person, oriented to place and oriented to time Cranial nerves: Yes Equal, round and reactive pupils present Speech: No Abnormal speech present Gait exam (Neuro): Normal gait present Motor exam (neuro): no tremor noted Extrem Right upper extremity: full ROM Left upper extremity: full ROM Right lower extremity: full ROM; no edema Left lower extremity: full ROM; no edema Psych Mental Status: mental status grossly normal Speech and movement: Normal speech and movement present Affect: normal affect Attitude: cooperative Thought process: Normal thought process present Coding Level of Care Code Est Pt Level 3 (07222) Diagnoses Neutropenia, unspecified type D70.9 Leukopenia type: neutropenia Neutropenia type: unspecified Assessment & Plan Assessment & Plan (1) Leukopenia: Code(s): D72.819 - Decreased white blood cell count, unspecified Category: Medical Qualifiers: Leukopenia type: neutropenia Neutropenia type: unspecified Qualified Code(s): D70.9 - Neutropenia, unspecified Plan: As per HPI noted to have leukopenia over the last few years. We have rechecked her white blood cell levels which seem to have somewhat normalized. Patient has not had any recurrent illnesses. Will continue to follow CBC and consider Hematology evaluation Orders: Orders IRON PROFILE 07/30/25 D50.9 - Iron deficiency anemia, unspecified, D64.9 - Anemia, unspecified Ferritin 07/30/25 D64.9 - Anemia, unspecified Complete Blood Count Auto Diff 07/30/25 D64.9 - Anemia, unspecified Vitamin B12 and Folate 07/30/25 D64.9 - Anemia, unspecified, E53.8 - Deficiency of other specified B group vitamins Vitamin D 25-OH Total 07/30/25 D64.9 - Anemia, unspecified
[2025-07-30 11:13] VITALS: BP 100/66; PULSE 66; TEMP 36.2; O2SAT 96; BMI 20.2
--- OUTSIDE RECORDS SUMMARY | 2025-07-30 13:10 | XMS_ITS | Clinical Summary ---
Author Organization [facility] Address [address] [address] Phone Care Team Providers Care Electrical Engineer Name Role Phone Kateryna Parker CNM Primary Care Provider [phone] Allergies No known active allergies Family History [...] on patient's age to complete this topic IPV VACCINES Aged Out No longer eligi ble [...] topic Medical Devices Not on file Insurance [employer] Member Subscriber Plan / Payer (Ef fective 2016-Present) Name:Asa Mckeon Relation to Subscriber:Self Name:Asa Mckeon Payer ID:[id number] ([facility]) Type:PPO Address: [place] [id number] [employer] Member Subscriber Plan / Payer (Ef fective 2016-Present) Name:Asa Mckeon Relation to Subscriber:Self Name:Asa Mckeon Payer ID:[id number] ([facility]) Type:PPO Address: [place] [id number] [employer] [facility] B[employer]EFITS ADMINISTRATORS Care Teams Electrical Engineer Relationship Specialty Start Date End Date Kateryna Parker CNM [address] [place] [address], [facility] [address] [place] [address] PCP - General Certified Nurse Internet Marketing Analyst 02/02/25 Additional Source Comments The information contained in this document represents components of the legal health record. It is not the complete legal health record.[facility]
== END 2025-07-30 11:56 | disposition home or self-care (01) ==
LOC: HO.HMCH 10:59
PROVIDERS: PCP Physician Assistant; Visit Provider Physician Assistant
DX: D70.9 Neutropenia, unspecified (principal)